=== PATIENT | male | born 1935 | race Caucasian/White ===

== ENCOUNTER 2016-09-08 07:40 | Emergency (ER) | payer MEDICARE, OTHER ==
[~2016-09-08 07:40] MED LIST: AMARYL2 MG PO; ASA CHILDREN'S81 MG PO; BETAPACE DPS80 MG PO; CARAFATE DPS1 GM PO; COLACE-DPS100 MG PO; COUMADIN DPS2 MG PO; COUMADIN2.5 MG PO; ELAVIL-DPS10 MG PO; FLOMAX DPS0.4 MG PO; GLUCOPHAGE1000 MG PO; IMDUR DPS30 MG PO; LANTUS100 UNITS/ SQ; LEVEMIR100 UNIT/1 SQ; LEXAPRO DPS20 MG PO; METOPROLOL TART25 MG PO; MIRALAX PACKET17 GM PO; NITROSTAT0.4 MG PO; NORCO 5-325 TA1 EACH PO; NORVASC5 MG PO; OMEGA-3 DPS1000 MG PO; OMNICEF DPS300 MG PO; POTASSIUM CHLO20 ME2 PO; PRAVACHOL40 MG PO; PROTONIX40 MG PO; TYLENOL DPS325 MG PO; ZESTORETIC 10/11 TAB PO; ZYRTEC DPS10 MG PO; [UNRECOGNIZED DRUG - OTHER] PO
--- NOTE | 2016-09-15 21:25 | ER ---
ADMIT: 09/08/2016 RM/LOC: ER [facility] MR#: [id number] [address] [facility] [address] [place], [place] [id number] ANABELLA INIGUEZ [address] [place] [address] Emergency Room Report SEX: M AGE: 81 : 1935 DATE: 09/08/2016 See T sheet for complete H and P. ADDENDUM: An 81-year-old male with some dementia,son brings in for concerns of what sound like they are mostly chronic. He does state that he has a headache and he has had it for many months but I think it might be a little worse today. The patient is a very poor historian due to his dementia. He also states [place] the base, he seemed to think he is a little more generally weak than normal and were concerned about his breathing as they thought they heard some wheezes. On examination, the patient does not appear in any distress whatsoever. He does take Coumadin and with his headache, I did do head CT to make sure there was no head bleed or there are no acute findings on his head CT. Due to concerns about his possible shortness of breath, we did do a chest x-ray was normal and his sats were in the mid 90s on room air and he was breathing comfortably. I did not hear any abnormal breath sounds other than some very mild wheezes with forced expiration. HOSPITAL COURSE: At this point, we will be discharging the patient home to follow up with his regular physician. He also sees a neurologist and he has been on some gabapentin for his headaches and I recommend they follow up with his neurologist. I did give him 6 Spring to use over the next couple of days as needed for headaches but I told the family I was reluctant to put him on anything fpc for these chronic headaches at this time. DIAGNOSIS: Chronic headache . Dash Mendoza MD/ evelina JOB #: [id number] CC: Dash Mendoza MD, Attending Physician
== END 2016-09-08 10:25 | disposition home or self-care (01) ==
LOC: ER 07:40
DX: R51 Headache (principal); G89.29 Other chronic pain; E11.9 Type 2 diabetes mellitus without complications; I10 Essential (primary) hypertension; Z86.73 Personal history of transient ischemic attack (TIA), and cerebral infarction without residual deficits; Z88.8 Allergy status to other drugs, medicaments and biological substances; Z79.01 Long term (current) use of anticoagulants; Z79.899 Other long term (current) drug therapy

== ENCOUNTER 2017-02-09 03:14 | Emergency (ER) | payer MEDICARE, OTHER ==
--- NOTE | 2017-02-09 06:44 | ER ---
ADMIT: 02/09/2017 RM/LOC: ER [facility] MR#: [id number] [address] [id number] ANABELLA INIGUEZ [address] [place] [address] Emergency Room Report SEX: M AGE: 82 : 1935 DATE: 02/09/2017 The patient is an 82-year-old disabled male status post CVA with right-sided residual weakness. Complains of intermittent right flank pain for the past 3 hours without dysuria or hematuria. Does admit to mild nausea. Currently being treated with Levaquin for skin infection. Exam remarkable for nontoxic, afebrile male, no acute distress. Normal CBC and CMP except for potassium 3.3. Lactic 1.4. CRP 0.6. INR 2.04. Lipase 205. Urinalysis, [address] abdomen and pelvis without contrast negative. The patient was given IV fluids, Zofran, Toradol, and Dilaudid with relief of discomfort. Advised to follow up with Dr. Smith next week for further diagnostic and therapeutic interventions. Sloan Luz MD/ evelina JOB #: [id number] CC: Sloan Luz MD, Attending Physician Norma Smith MD, Family Physician Norma Smith MD
== END 2017-02-09 05:45 | disposition home or self-care (01) ==
LOC: ER 03:14
DX: R10.9 Unspecified abdominal pain (principal); Z88.8 Allergy status to other drugs, medicaments and biological substances